=== PATIENT | male | born 1960 | race Caucasian/White ===

== ENCOUNTER → 2018-10-06 | Day surgery (SDC) | payer OTHER ==
[~2018-10-06] MED LIST: ACARBOSE50 MG PO; ASPIRIN81 MG PO; ATORVASTATIN CA20 MG PO; FARXIGA PO; GLYBERIDE PO; KETAMINE HCL INJ 50 MG/ML 10 ML VIAL ONE; LISINOPRIL2.5 MG PO; METFORMIN PO; METOPROLOL TART50 MG PO; MIDAZOLAM HCL 2 MG/2 ML VIAL ONE; PROPOFOL IV EMULSION 10 MG/ML 50 ML VIAL ONE; SERTRALINE HCL50 MG PO
--- OUTSIDE RECORDS SUMMARY | 2018-10-06 05:16 | XMS REPORT ---
Author [facility] Address Unknown Phone Unavailable Care Team Providers Care Senior It Assistant Name Role Phone Unavailable Unavailable Problems This patient has no known problems. Allergies, Adverse Reactions, Alerts This patient has no known allergies or adverse reactions. Medications This patient has no known medications. Encounters Start Date/Time End Date/Time Encounter Type Admission Type Attending [facility] Facility Care Department Encounter ID 2018-02-20 00:00:00 2018-02-20 00:00:00 Outpatient [facility] [id number] 2018-02-12 00:00:00 2018-02-12 00:00:00 Outpatient [facility] [id number] 2018-02-12 00:00:00 2018-02-12 00:00:00 Outpatient [facility] [id number] 2017-12-30 13:02:53 2017-12-30 13:02:53 Outpatient [facility] [id number] 2017-12-15 13:06:59 2017-12-15 13:06:59 Outpatient [facility] [id number] 2017-12-05 00:00:00 2017-12-05 00:00:00 Outpatient [facility] [id number] 2017-12-02 00:00:00 2017-12-02 00:00:00 Outpatient [facility] [id number] 2017-12-01 00:00:00 2017-12-01 00:00:00 Outpatient [facility] [id number] 2017-11-26 00:00:00 2017-11-26 00:00:00 Outpatient [facility] [id number] 2017-11-25 12:39:03 2017-11-25 12:39:03 Outpatient [facility] [id number] 2017-11-21 11:02:04 2017-11-21 11:02:04 Outpatient [facility] [id number] 2017-11-20 00:00:00 2017-11-20 00:00:00 Outpatient [facility] [id number] 2017-11-20 00:00:00 2017-11-20 00:00:00 Outpatient [facility] [id number] 2017-09-24 00:00:00 2017-09-24 00:00:00 Outpatient [facility] [id number] 2017-09-11 00:00:00 2017-09-11 00:00:00 Outpatient [facility] [id number] 2017-09-11 00:00:00 2017-09-11 00:00:00 Outpatient [facility] [id number] 2017-08-22 13:39:49 2017-08-22 13:39:49 Outpatient [facility] [id number] 2017-08-21 13:38:43 2017-08-21 13:38:43 Outpatient [facility] [id number] 2017-07-31 14:10:13 2017-07-31 14:10:13 Outpatient [facility] [id number] 2017-07-14 00:00:00 2017-07-14 00:00:00 Outpatient [facility] [id number] 2017-06-09 11:15:34 2017-06-09 11:15:34 Outpatient [facility] [id number] 2017-05-27 10:02:56 2017-05-27 10:02:56 Outpatient [facility] [id number] 2017-05-23 13:47:03 2017-05-23 13:47:03 Outpatient [facility] [id number] 2017-05-23 12:59:01 2017-05-23 12:59:01 Outpatient [facility] [id number] 2017-04-02 10:55:34 2017-04-02 10:55:34 Outpatient [facility] [id number] 2017-03-19 10:48:51 2017-03-19 10:48:51 Outpatient [facility] [id number] 2017-03-12 00:00:00 2017-03-12 00:00:00 Outpatient [facility] [id number] 2017-03-06 00:00:00 2017-03-06 00:00:00 Outpatient [facility] [id number] 2017-02-21 00:00:00 2017-02-21 00:00:00 Outpatient [facility] [id number] 2017-02-18 18:51:33 2017-02-18 18:51:33 Outpatient [facility] [id number] 2017-01-24 15:19:07 2017-01-24 15:19:07 Outpatient [facility] [id number] 2017-01-24 00:00:00 2017-01-24 00:00:00 Outpatient [facility] [id number] 2017-01-13 13:32:48 2017-01-13 13:32:48 Outpatient [facility] [id number] 2016-12-31 09:20:06 2016-12-31 09:20:06 Outpatient [facility] [id number] 2016-12-26 00:00:00 2016-12-26 00:00:00 Outpatient [facility] [id number] 2016-12-24 00:00:00 2016-12-24 00:00:00 Outpatient [facility] [id number] 2016-12-11 08:32:08 2016-12-11 08:32:08 Outpatient [facility] [id number] 2016-12-03 14:18:31 2016-12-03 14:18:31 Outpatient [facility] [id number] 2016-11-29 00:00:00 2016-11-29 00:00:00 Outpatient [facility] [id number] 2016-11-27 00:00:00 2016-11-27 00:00:00 Outpatient [facility] [id number] 2016-11-27 00:00:00 2016-11-27 00:00:00 Outpatient [facility] [id number] 2016-11-26 00:00:00 2016-11-26 00:00:00 Outpatient [facility] [id number] 2016-11-22 15:03:19 2016-11-22 15:03:19 Outpatient [facility] [id number] 2016-11-13 00:00:00 2016-11-13 00:00:00 Outpatient [facility] [id number] 2016-11-07 14:24:26 2016-11-07 14:24:26 Outpatient [facility] [id number] 2016-10-29 18:58:20 2016-10-29 18:58:20 Outpatient [facility] [id number] 2016-10-08 14:12:40 2016-10-08 14:12:40 Outpatient [facility] [id number] 2016-09-25 07:56:38 2016-09-25 07:56:38 Outpatient [facility] [id number] 2016-09-02 11:16:22 2016-09-02 11:16:22 Outpatient [facility] [id number] 2016-08-15 07:43:21 2016-08-15 07:43:21 Outpatient [facility] [id number] 2016-08-15 00:00:00 2016-08-15 00:00:00 Outpatient [facility] [id number] 2016-08-09 14:27:08 2016-08-09 14:27:08 Outpatient [facility] [id number]
[2018-10-06 08:45] VITALS: BP 153/91
== END | disposition home or self-care (01) ==
LOC: OR 05:00
PROVIDERS: ATTEND Internal Medicine Gastroenterology
DX: K29.60 Other gastritis without bleeding (principal); D12.3 Benign neoplasm of transverse colon; D12.4 Benign neoplasm of descending colon; D12.5 Benign neoplasm of sigmoid colon; D12.8 Benign neoplasm of rectum; K25.9 Gastric ulcer, unspecified as acute or chronic, without hemorrhage or perforation; K29.80 Duodenitis without bleeding; K21.0 Gastro-esophageal reflux disease with esophagitis; K57.30 Diverticulosis of large intestine without perforation or abscess without bleeding; K44.9 Diaphragmatic hernia without obstruction or gangrene; K64.8 Other hemorrhoids; G47.33 Obstructive sleep apnea (adult) (pediatric); I10 Essential (primary) hypertension; E78.5 Hyperlipidemia, unspecified; E11.9 Type 2 diabetes mellitus without complications; R05 Cough; H91.90 Unspecified hearing loss, unspecified ear; F41.9 Anxiety disorder, unspecified; Z01.810 Encounter for preprocedural cardiovascular examination; Z79.82 Long term (current) use of aspirin; Z79.84 Long term (current) use of oral hypoglycemic drugs; Z68.36 Body mass index [BMI] 36.0-36.9, adult; Z86.718 Personal history of other venous thrombosis and embolism
CPT/HCPCS: 36415; 43239; 45384; 45385; 82948; 93005; J2250; J2704; 45378